=== PATIENT | male | born 1990 | race Caucasian/White ===

== ENCOUNTER 2017-12-02 14:41 | Emergency (ER) | payer SELFPAY ==
[2017-12-02 14:49] VITALS: BP 144/87; PULSE 138; RESP 16; TEMP 98.5; O2SAT 100
--- NOTE | 2017-12-02 15:07 | ED PDOC ---
Arrival/HPI - General Chief Complaint: Dental Pain Time Seen by Provider: 12/02/17 14:50 Historian: Patient - History of Present Illness Narrative History of Present Illness (Text): 12/02/17 15:02 26yo male with no PMHx who present with complaint of left sided upper molar toothache x 2days. States the tooth cracked a month ago and pain started fe days ago. States taking OTC analgesic without relieve. Denies fever, trauma, any other complaint. Past Medical History - Provider Review Nursing Documentation Reviewed: Yes - Psychiatric Hx Psychophysiologic Disorder: No Hx Substance Use: No Family/Social History - Physician Review Nursing Documentation Reviewed: Yes Family/Social History: Unknown Family HX Smoking Status: Never Smoked Hx Alcohol Use: No Hx Substance Use: No Allergies/Home Meds Allergies/Adverse Reactions: Allergies strawberry Allergy (Verified 12/02/17 14:44) RASH Review of Systems - Physician Review All systems were reviewed & negative as marked: Yes - Review of Systems Constitutional: Normal Eyes: Normal ENT: Other (Toothache) Respiratory: Normal Cardiovascular: Normal Gastrointestinal: Normal Genitourinary Male: Normal Musculoskeletal: Normal Skin: Normal Neurological: Normal Endocrine: Normal Hemo/Lymphatic: Normal Psychiatric: Normal Physical Exam Vital Signs Reviewed: Yes Vital Signs Temp Pulse Resp BP Pulse Ox 12/02/17 14:47 98.5 F 138 H 16 144/87 100 Temperature: Afebrile Blood Pressure: Normal Pulse: Regular Respiratory Rate: Normal Appearance: Positive for: Well-Appearing, Non-Toxic, Comfortable Pain Distress: None Mental Status: Positive for: Alert and Oriented X 3 - Systems Exam Head: Present: Atraumatic, Normocephalic Pupils: Present: PERRL Extroacular Muscles: Present: EOMI Conjunctiva: Present: Normal Mouth: Present: Moist Mucous Membranes. No: Normal Teeth (partial cracked left upper 1st molar noted with mild surrounding gingival swelling) Neck: Present: Normal Range of Motion Respiratory/Chest: Present: Clear to Auscultation, Good Air Exchange. No: Respiratory Distress, Accessory Muscle Use Cardiovascular: Present: Regular Rate and Rhythm, Normal S1, S2. No: Murmurs Abdomen: Present: Normal Bowel Sounds. No: Tenderness, Distention, Peritoneal Signs Back: Present: Normal Inspection Upper Extremity: Present: Normal Inspection. No: Cyanosis, Edema Lower Extremity: Present: Normal Inspection. No: Edema Neurological: Present: GCS=15, CN II-XII Intact, Speech Normal Skin: Present: Warm, Dry, Normal Color. No: Rashes Psychiatric: Present: Alert, Oriented x 3, Normal Insight, Normal Concentration Disposition/Present on Arrival - Present on Arrival Any Indicators Present on Arrival: No History of DVT/PE: No History of Uncontrolled Diabetes: No Urinary Catheter: No History of Decub. Ulcer: No History Surgical Site Infection Following: None - Disposition Have Diagnosis and Disposition been Completed?: Yes Diagnosis: Dental caries Disposition: HOME/ ROUTINE Disposition Time: 15:10 Patient Plan: Discharge Condition: STABLE Discharge Instructions (ExitCare): Dental Caries (ED) Additional Instructions: Follow up with a Dentist Return to ED for any new or worsening symptoms Prescriptions: Amoxicillin 500 mg PO TID #21 tablet traMADol [Ultram] 50 mg PO TID #7 tab Referrals: [facility] [place] - Follow up with primary
== END 2017-12-02 15:28 | disposition home or self-care (01) ==
LOC: ED 14:41
DX: K02.9 Dental caries, unspecified (principal)

== ENCOUNTER 2018-05-23 15:04 | Inpatient (IN) | payer MEDICAID, OTHER ==
--- NOTE | 2018-05-23 15:16 | ED PDOC ---
Arrival/HPI - General Time Seen by Provider: 05/23/18 15:16 Historian: Patient - History of Present Illness Narrative History of Present Illness (Text): 05/23/18 15:16 This 27 yo male with pmh GERD, gastritis, presents to this ED c/o suicidal ideation x 2 months. Patient stated he developed abdominal, acid reflux problems x 2 moths ago, and he started to have SI. Patient was able to see his clinic doctor 2 months ago, who prescribed him medication for GERD. He said this medication has worsen his SI. Patient stated that he used to watch TV alone in the house, but now he tries to "hang out" with his father more often , since he is afraid to be alone, and afraid to hurt himself. He admits symptoms are intermittent. Patient denies other somatic complains. Patient denies HI, hallucination, paranoia, dizziness, sob, cp, abdominal pain, alcohol abuse, drug abuse, or abnormal gait. Time/Duration: Other (see hpi) Context: Home Past Medical History - Provider Review Nursing Documentation Reviewed: Yes - Infectious Disease Hx of Infectious Diseases: None - Gastrointestinal Hx Gastrointestinal Disorders: Yes Hx Gastroesophageal Reflux: Yes - Psychiatric Hx Substance Use: No - Anesthesia Hx Anesthesia: No Family/Social History - Physician Review Nursing Documentation Reviewed: Yes Family/Social History: Other (noncontributory) Smoking Status: Never Smoked Hx Alcohol Use: No Hx Substance Use: No Allergies/Home Meds Allergies/Adverse Reactions: Allergies strawberry Allergy (Verified 04/25/18 13:26) RASH Review of Systems - Review of Systems Constitutional: Normal. absent: Fatigue, Weight Change, Fevers, Night Sweats Eyes: Normal ENT: Normal Respiratory: Normal. absent: SOB, Cough Cardiovascular: Normal. absent: Chest Pain, Palpitations Gastrointestinal: Normal. absent: Abdominal Pain, Nausea, Vomiting Genitourinary Male: Normal Musculoskeletal: Normal Skin: Normal Neurological: Normal. absent: Headache, Dizziness Endocrine: Normal Hemo/Lymphatic: Normal Psychiatric: Suicidal Ideation Physical Exam Vital Signs Temp Pulse Resp BP Pulse Ox 05/23/18 15:04 98.2 F 68 18 122/70 98 Temperature: Afebrile Blood Pressure: Normal Pulse: Regular Respiratory Rate: Normal Appearance: Positive for: Well-Appearing, Non-Toxic, Comfortable Pain Distress: None Mental Status: Positive for: Alert and Oriented X 3 - Systems Exam Head: Present: Atraumatic, Normocephalic Pupils: Present: PERRL Extroacular Muscles: Present: EOMI Conjunctiva: Present: Normal Mouth: Present: Moist Mucous Membranes Neck: Present: Normal Range of Motion Respiratory/Chest: Present: Clear to Auscultation, Good Air Exchange. No: Respiratory Distress, Accessory Muscle Use Cardiovascular: Present: Regular Rate and Rhythm, Normal S1, S2. No: Murmurs Abdomen: No: Tenderness, Distention, Peritoneal Signs Back: Present: Normal Inspection Upper Extremity: Present: Normal Inspection. No: Cyanosis, Edema Lower Extremity: Present: Normal Inspection. No: Edema Neurological: Present: GCS=15, CN II-XII Intact, Speech Normal Skin: Present: Warm, Dry, Normal Color. No: Rashes Psychiatric: Present: Alert, Oriented x 3, Suicidal Ideation Medical Decision Making ED Course and Treatment: 05/23/18 20:00 PES screener stated that patient agreed to be admitted in the psychiatric department. Re-evaluation Time: 20:46 Reassessment Condition: Re-examined, Improving,but remains with symptoms - Lab Interpretations Lab Results: 05/23/18 15:30 05/23/18 15:30 Lab Results 05/23/18 15:30: Alcohol, Quantitative < 10 05/23/18 15:30: Salicylates < 1 L, Acetaminophen < 10.0 L 05/23/18 15:30: Urine Opiates Screen Negative, Urine Methadone Screen Negative, Ur Barbiturates Screen Negative, Ur Phencyclidine Scrn Negative, Ur Amphetamines Screen Negative, U Benzodiazepines Scrn Negative, U Oth Cocaine Metabols Negative, U Cannabinoids Screen Negative 05/23/18 15:30: Sodium 142, Potassium 3.6, Chloride 101, Carbon Dioxide 28, Anion Gap 17, BUN 11, Creatinine 0.8, Est GFR ( Amer) > 60, Est GFR (Non- Af Amer) > 60, Random Glucose 106, Calcium 9.8, Magnesium 2.2, Total Bilirubin 0.7, AST 26, ALT 31, Alkaline Phosphatase 67, Total Protein 8.7 H, Albumin 5.2 H , Globulin 3.5, Albumin/Globulin Ratio 1.5 05/23/18 15:30: Urine Color Colorless, Urine Appearance Clear, Urine pH 6.5, Ur Specific [place] <= 1.005, Urine Protein Negative, Urine Glucose (UA) Negative, Urine Ketones Negative, Urine Blood Negative, Urine Nitrate Negative, Urine Bilirubin Negative, Urine Urobilinogen 0.2, Ur Leukocyte Esterase Negative 05/23/18 15:30: WBC 5.5, RBC 5.75, Hgb 16.5, Hct 46.0, MCV 80.0, MCH 28.7, MCHC 35.9, RDW 12.6, Plt Count 236, MPV 10.4, Gran % 51.3, Lymph % (Auto) 36.9 H, [place] % (Auto) 9.8 H, Eos % (Auto) 1.6, Baso % (Auto) 0.4, Gran # 2.84, Lymph # ( Auto) 2.0, [place] # (Auto) 0.5, Eos # (Auto) 0.1, Baso # (Auto) 0.02 I have reviewed the lab results: Yes Interpretation: No clinic. lab abnormalty - RAD Interpretation Radiology Orders: 05/23/18 15:38 CHEST PORTABLE [RAD] Stat Disposition/Present on Arrival - Present on Arrival Any Indicators Present on Arrival: No History of DVT/PE: No History of Uncontrolled Diabetes: No Urinary Catheter: No History Surgical Site Infection Following: None - Disposition Have Diagnosis and Disposition been Completed?: Yes Diagnosis: Major depressive disorder Disposition: HOSPITALIZED Disposition Time: 20:48 Patient Plan: Admission Condition: STABLE Referrals: PCP,NO [Primary Care Provider] - Follow up with primary
[2018-05-23 15:38] VITALS: BMI 23.1
[2018-05-23 15:54] LABS: BASO # 0.02 K/mm3 (0.0-2.0); BASO % 0.4 % (0.0-3.0); EOS # 0.1 (0.0-0.7); EOS % 1.6 % (1.5-5.0); GRAN # 2.84 (1.4-6.5); GRAN % 51.3 % (50.0-68.0); HEMOGLOBIN 16.5 g/dL (14.0-18.0); LYMPH % 36.9 % (22.0-35.0); MEAN CORPUSCULAR HEMOGLOBIN 28.7 pg (25.0-35.0); MEAN CORPUSCULAR HGB CONC 35.9 g/dl (31.0-37.0); MEAN PLATELET VOLUME 10.4 fl (7.0-11.0); MONO # 0.5 (0.1-0.6); MONO % 9.8 % (1.0-6.0); RBC 5.75 10^6/uL (3.5-6.1); RED CELL DISTRIBUTION WIDTH 12.6 % (11.5-14.5); WHITE BLOOD COUNT 5.5 10^3/ul (4.5-11.0)
--- NOTE | 2018-05-23 16:00 | RAD ---
Date of service: 05/23/2018 HISTORY: PES eval COMPARISON: No prior. FINDINGS: LUNGS: No active pulmonary disease. PLEURA: No significant pleural effusion identified, no pneumothorax apparent. CARDIOVASCULAR: Normal. OSSEOUS STRUCTURES: No significant abnormalities. VISUALIZED UPPER ABDOMEN: Normal. OTHER FINDINGS: None. IMPRESSION: No active disease.
[2018-05-23 16:05] LABS: ACETAMINOPHEN < 10.0 ug/ml (10.0-20.0); PH,URINE 6.5 (4.7-8.0); SALICYLATE < 1 mg/dL (2.0-20.0); URINE BILIRUBIN NEGATIVE (NEGATIVE); URINE BLOOD NEGATIVE (NEGATIVE); URINE GLUCOSE (UA) NEGATIVE (NEGATIVE); URINE LEUKOCYTE ESTERASE NEGATIVE Leu/uL (NEGATIVE); URINE PROTEIN NEGATIVE mg/dL (<30 mg/dL); URINE UROBILINOGEN 0.2 E.U./dL (<1 E.U./dL)
[2018-05-23 16:06] LABS: ALB/GLOB RATIO 1.5 (1.1-1.8); ALBUMIN 5.2 g/dL (3.0-4.8); ALT/SGPT 31 U/L (7-56); AST/SGOT 26 U/L (17-59); BLOOD UREA NITROGEN 11 mg/dL (7-21); CALCIUM 9.8 mg/dL (8.4-10.5); GFR AFRICAN-AMERICAN > 60; GFR NON-AFRICAN AMERICAN > 60; URINE APPEARANCE CLEAR (CLEAR); URINE COLOR COLORLESS (YELLOW)
[2018-05-23 16:28] LABS: BARBITURATES, UR NEGATIVE (NEGATIVE); BENZODIAZEPINES, UR NEGATIVE (NEGATIVE); OPIATES, UR NEGATIVE (NEGATIVE); PHENCYCLIDINE, UR NEGATIVE (NEGATIVE)
--- NOTE | 2018-05-23 19:30 | CARD ---
APPROVED REPORT Date of service: 05/23/2018 EKG Measurement Heart [id number] <Conclusion> Normal sinus rhythm with sinus arrhythmia Normal ECG
[2018-05-23 22:21] VITALS: O2SAT 99
[2018-05-23] MEDS ORDERED: Pantoprazole 40 mg EC Tab PO ONE (22:59)
--- NOTE | 2018-05-24 04:04 | PCM.BM ---
<María Braden - Last Filed: 05/24/18 04:02> Treatment Plan Problems - Problems identified on initial assessmt Ineffective Coping Date Initiated: 05/24/18 Time Initiated: 04:02 Assessment reference: NA Status: Active Social Isolation Date Initiated: 05/24/18 Time Initiated: 04:03 Assessment reference: NA Status: Active Altered Sleep Patterns Date Initiated: 05/24/18 Time Initiated: 04:03 Assessment reference: NA Status: Active Treatment assets and liabiliti Patient Assests: adapts well, cooperative, educated, insightful, self-reliant, ADL independent, good support system, negotiates basic needs, cognitively intact , good interpersonal skills Patient Liabilities: medical problems - Milieu Protocol Maintain good personal hygiene: daily Encourage regular showers, daily Remind patient to perform daily oral care, daily Assist patient to perform ADL's Conduct patient checks and document Observation sheet: Q15 minutes Maintain personal safety: every shift Educate patient to report safety concerns to staff, every shift Monitor environment for contraband/sharps Medication safety: Monitor for expected outcome, potential side effects: every shift, Assess barriers to learning: every shift, Assess readiness for medication education: every shift Discharge/Continuing Care - Education Needs Education Needs: Patient Medication, Patient Diagnosis/Disease Process, Patient Coping Skills, Patient Community resources, Patient Activities of Daily Living, Patient Pain, Patient Nutrition, Patient Health Practices/Safety, Patient Aftercare Safety Plan - Discharge Discharge Criteria: Tolerates medication w/o severe side effects, Free of Suicidal thoughts, Normal sleep pattern, Ability to care for self, Reduction of target symptoms <Mahnaz Mayen - Last Filed: 05/24/18 15:50> - Diagnosis (2) Major depressive disorder Status: Acute Interventions: 05/24/18 15:50 Psychoeducation Psychopharmacology/adjustment of medications as needed/ monitoring possible side effects Evaluate pt on daily basis Compliance with medications and follow up appointments Suicide and homicide risk assessment and prevention Relapse prevention Reduction of symptoms Improve functional status Family involvement As outpatient: cognitive behavioral therapy <Candie Portillo - Last Filed: 05/24/18 17:25> Family Contact Family involvement: Famliy/SO not involved <Anna Barnes - Last Filed: 05/27/18 15:44>
[2018-05-24 06:49] LABS: GLUCOSE,FASTING 100 mg/dL (65-110); HDL CHOLESTEROL 80 mg/dL (29-60)
[2018-05-24 07:00] LABS: LDL CHOLESTEROL 75 mg/dL (0-129)
[2018-05-24 07:03] VITALS: RESP 20
--- NOTE | 2018-05-24 09:10 | CP.PCM.CON ---
<Aguilar Garcia - Last Filed: 05/24/18 22:14> History of Present Illness - History of Present Illness History of Present Illness: Aguilar Garcia D.O. PGY-1 -- [facility] - Medicine Consult Note Reason for consult: GERD This is a 27 year old male with past medical history of GERD and depression who came in to [facility] ([facility] [place] emergency department (ED) for vomiting and gastric reflux. While in the ED patient stated he thought of hurting himself , and was admitted to [facility] [place] psychiatric unit for evaluation and treatment. Patient says he vomited yellowish "gastric" fluid, and says he often feels that after each meal he experiences nausea. Patient says that Reglan and pantoprazole makes it better, and that eating spicy foods makes it worse. Patient admits to depression and anxiety but otherwise denies suicidal thoughts. Patient denies homicidal thoughts. Patient denies chest pain, shortness of breath, abdominal pain, dizziness, and/or headache. PMH: GERD PSH: None Family history: Patient denies Social History: - denies tobacco - denies ETOH - denies recreational drugs - Lives at home with father Review of Systems - Review of Systems All systems: reviewed and no additional remarkable complaints except - Constitutional Constitutional: As Per HPI - EENT Eyes: As Per HPI Nose/Mouth/Throat: As Per HPI - Cardiovascular Cardiovascular: As Per HPI - Respiratory Respiratory: As Per HPI - Gastrointestinal Gastrointestinal: As Per HPI - Genitourinary Genitourinary: As Per HPI - Reproductive: Male Reproductive:Male: As Per HPI - Musculoskeletal Musculoskeletal: As Per HPI - Integumentary Integumentary: As Per HPI - Neurological Neurological: As Per HPI - Psychiatric Psychiatric: As Per HPI - Endocrine Endocrine: As Per HPI - Hematologic/Lymphatic Hematologic: As Per HPI Past Patient History - Infectious Disease Hx of Infectious Diseases: None - Past Medical History & Family History Past Medical History?: Yes Past Family History: Reviewed and not pertinent - Past Social History Smoking Status: Never Smoked Chewing Tobacco Use: No Cigar Use: No Alcohol: None Drugs: Denies Home Situation {Lives}: With Family Domestic Violence: Negative - CARDIAC Hx Cardiac Disorders: No - PULMONARY Hx Respiratory Disorders: No - NEUROLOGICAL Hx Neurological Disorder: No - HEENT Hx HEENT Problems: No - RENAL Hx Chronic Kidney Disease: No - ENDOCRINE/METABOLIC Hx Endocrine Disorders: No - HEMATOLOGICAL/ONCOLOGICAL Hx Blood Disorders: No - INTEGUMENTARY Hx Dermatological Problems: No - MUSCULOSKELETAL/RHEUMATOLOGICAL Hx Musculoskeletal Disorders: No - GASTROINTESTINAL Hx Gastrointestinal Disorders: Yes Hx Gastroesophageal Reflux: Yes - GENITOURINARY/GYNECOLOGICAL Hx Genitourinary Disorders: No - PSYCHIATRIC Hx Substance Use: No - SURGICAL HISTORY Hx Surgeries: No - ANESTHESIA Hx Anesthesia: No Meds Allergies/Adverse Reactions: Allergies Allergy/AdvReac Type Severity Reaction Status Date / Time strawberry Allergy RASH Verified 05/23/18 23:28 - Medications Medications: Current Medications Acetaminophen (Tylenol 325mg Tab) 650 mg PO Q6H PRN PRN Reason: Pain, Mild (1-3) Last Admin: 05/23/18 23:41 Dose: 650 mg Ondansetron HCl (Zofran Tab) 4 mg PO Q6 PRN PRN Reason: Nausea/Vomiting Last Admin: 05/24/18 04:59 Dose: 4 mg Physical Exam - Constitutional Appears: Well, Non-toxic, No Acute Distress - Head Exam Head Exam: ATRAUMATIC, NORMAL INSPECTION, NORMOCEPHALIC - Eye Exam Eye Exam: EOMI, Normal appearance. absent: Conjunctival injection, Scleral icterus Pupil Exam: NORMAL ACCOMODATION - ENT Exam ENT Exam: Mucous Membranes Moist, Normal Exam - Neck Exam Neck exam: Positive for: Normal Inspection - Respiratory Exam Respiratory Exam: Clear to Auscultation Bilateral, NORMAL BREATHING PATTERN - Cardiovascular Exam Cardiovascular Exam: REGULAR RHYTHM, RRR - GI/Abdominal Exam GI & Abdominal Exam: Normal Bowel Sounds, Soft. absent: Bruit, Diminished Bowel Sounds, Distended, Hyperactive Bowel Sounds, Organomegaly, Pulsatile Mass , Tenderness - Extremities Exam Extremities exam: Positive for: normal inspection - Back Exam Back exam: NORMAL INSPECTION - Neurological Exam Neurological exam: Alert, CN II-XII Intact, Normal Gait, Oriented x3, Reflexes Normal - Psychiatric Exam Psychiatric exam: Anxious, Normal Affect, Normal Mood - Skin Skin Exam: Dry, Intact, Normal Color, Warm Results - Vital Signs Recent Vital Signs: Last Vital Signs Temp 97.9 F 05/24/18 07:02 Pulse 54 L 05/24/18 07:02 Resp 20 05/24/18 07:02 BP 116/74 05/24/18 07:02 Pulse Ox 99 07/12/18 21:16 - Labs Result Diagrams: 05/23/18 15:30 05/23/18 15:30 Labs: Laboratory Results - last 24 hr 05/24/18 05/24/18 06:00 06:00 Fasting Glucose 100 Triglycerides 73 Cholesterol 189 LDL Cholesterol Direct 75 HDL Cholesterol 80 H TSH 3rd Generation 3.29 Assessment & Plan - Assessment and Plan (Free Text) Assessment: This is a 27 year old male with past medical history of GERD and depression who came in to [facility] ([facility] [place] emergency department (ED) for vomiting and gastric reflux. While in the ED patient stated he thought of hurting himself , and was admitted to [facility] [place] psychiatric unit for evaluation and treatment. Nausea and vomiting likely secondary to GERD - Discontinued zofran - Patient is started on home meds (Reglan and Esomeprazole) - Will monitor out-patient - Patient educated on avoiding spicy foods, drinking coffee, and eating right before bedtime - Patient scheduled for follow-up appointment for his GERD in clinic on 2017 at 1:00PM Suicidal Ideation likely secondary to depression, patient admitted to in- patient psych unit - management per psych Thank you for allowing me to participate in the care of the above named patient. Please consult again if necessary. Patient was evaluated and case was discussed with Attending Physician, Dr. Shante Garcia D.O. PGY1 - Date & Time Date: 05/24/18 Time: 12:21 <Thu Frey - Last Filed: 05/25/18 11:27> Meds - Medications Medications: Current Medications Acetaminophen (Tylenol 325mg Tab) 650 mg PO Q6H PRN PRN Reason: Pain, Mild (1-3) Last Admin: 05/23/18 23:41 Dose: 650 mg Mirtazapine (Remeron) 7.5 mg PO HS MAVERICK Last Admin: 05/24/18 21:55 Dose: 7.5 mg Ondansetron HCl (Zofran Tab) 4 mg PO Q8H PRN PRN Reason: Nausea/Vomiting Last Admin: 05/25/18 09:25 Dose: 4 mg Pantoprazole Sodium (Protonix Ec Tab) 40 mg PO DAILY MAVERICK Last Admin: 05/25/18 08:38 Dose: 40 mg Results - Vital Signs Recent Vital Signs: Last Vital Signs Temp 97.2 F L 05/25/18 06:44 Pulse 69 05/25/18 06:44 Resp 20 05/25/18 06:44 BP 111/77 05/25/18 06:44 Pulse Ox 99 05/23/18 21:16 - Labs Result Diagrams: 05/23/18 15:30 05/23/18 15:30 Labs: Laboratory Results - last 24 hr 05/24/18 06:00 RPR Nonreactive Attending/Attestation - Attestation I have personally seen and examined this patient.: Yes I have fully participated in the care of the patient.: Yes I have reviewed all pertinent clinical information: Yes Notes (Text): 05/25/18 11:22 Attending note Patient seen and examined with resident in psychiatric floor. Patient is a 27 year old male with past medical history of GERD and depression was admitted in the psychiatric floor for suicidal ideation. Patient with a history of GERD. Getting treated as outpatient with omeprazole. Currently denies any nausea, vomiting. Started on Protonix. Zofran when necessary. Tolerating diet well. Ambulating fine. Patient is medically stable. Please reconsult as needed. Patient will be referred to [facility] [place] clinic upon discharge. 05/25/18 11:27
[2018-05-24] MEDS: Pantoprazole 40 mg EC Tab PO SCH (13:34)
--- NOTE | 2018-05-24 14:07 | PCM.PSYCH ---
<Nora Pike - Last Filed: 05/24/18 15:34> Initial Psychiatric Evaluation - Initial Psychiatric Evaluation Type of Admission: Voluntary Legal Status: Capacity Chief Complaint (in patient's own words): I haven been having stomach issues for the past few months. I came fore a follow-up appointment today and said that I thought the medications were causing me to have bad thoughts. The thoughts are not there all the time. They come at night. I would never act on them though. I dont believe in that. Patient's Reaction to Hospitalization: The patient was admitted to the psych unit for evaluation after reporting thoughts of self-harm/suicide without a plan. History of Present Illness and Precipitating Events: Yoel Perez is a 27 yo Vietnamese male with no past psychiatric history who presented to the ED with his father after being referred by his outpatient provider for expressing thoughts of suicide. The patient reports experiencing GI upset/GERD for the past few months. He was diagnosed with gastritis and GERD and was started on Nexium and Zofran. He states his symptoms were improving, but he continues to have intermittent vomiting and body aches causing him to have poor sleep. He also reports intermittent thoughts about wanting to hurt/ kill himself. He is adamant that he has no intent of actually hurting himself. He believes that these thoughts may be due to his GI medications. He describes the thoughts as annoying and scary. He is unable to articulate exactly what the thoughts are. He repeatedly denies any plan or intent, stating I do not believe in that and would never actually do it. He had a follow-up appointment with the [facility] yesterday, and the provider referred him to the ED for evaluation. The patient is originally from [place] but has lived in the [place] full[place]time for the past 3 years. He is attempting to become a [place] citizen and actually had an appointment for fingerprinting scheduled for today. He lives with his father. Most of his family is outside the [place], but he reports that his mother comes to visit often from [place]. 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 Both the patient and his father deny any psychiatric history. The patient is seen in treatment team and presents as calm and cooperative. He is a good historian. He is dressed in a hospital gown with good grooming/ hygiene. His speech and thought process are linear, logical, and coherent. The patient states his mood is good, and adds that if he is not in a good mood, he tries to do things to make him feel better, like read and write. The patient states he has friends but does not see them as much as he used to because everyone is busy. He reports this causes him to feel lonely at times. The patient reports his appetite is good, despite his GI symptoms. His concentration and energy are good. He denies ever experiencing any symptoms of jocelyn, anxiety, or psychosis. He denies trauma and abuse. He denies substance use. Vital Signs Temp Pulse Resp BP Pulse Ox 05/24/18 07:02 97.9 F 54 L 20 116/74 05/23/18 21:16 82 17 120/61 99 05/23/18 20:52 98.8 F 88 20 118/78 98 05/23/18 15:04 98.2 F 68 18 122/70 98 05/23/18 15:30 05/23/18 15:30 Lab Results 05/24/18 06:00: Fasting Glucose 100, Triglycerides 73, Cholesterol 189, LDL Cholesterol Direct 75, HDL Cholesterol 80 H 05/24/18 06:00: TSH 3rd Generation 3.29 05/23/18 15:30: Alcohol, Quantitative < 10 05/23/18 15:30: Salicylates < 1 L, Acetaminophen < 10.0 L 05/23/18 15:30: Urine Opiates Screen Negative, Urine Methadone Screen Negative, Ur Barbiturates Screen Negative, Ur Phencyclidine Scrn Negative, Ur Amphetamines Screen Negative, U Benzodiazepines Scrn Negative, U Oth Cocaine Metabols Negative, U Cannabinoids Screen Negative 05/23/18 15:30: Sodium 142, Potassium 3.6, Chloride 101, Carbon Dioxide 28, Anion Gap 17, BUN 11, Creatinine 0.8, Est GFR ( Amer) > 60, Est GFR (Non- Af Amer) > 60, Random Glucose 106, Calcium 9.8, Magnesium 2.2, Total Bilirubin 0.7, AST 26, ALT 31, Alkaline Phosphatase 67, Total Protein 8.7 H, Albumin 5.2 H , Globulin 3.5, Albumin/Globulin Ratio 1.5 05/23/18 15:30: Urine Color Colorless, Urine Appearance Clear, Urine pH 6.5, Ur Specific [place] <= 1.005, Urine Protein Negative, Urine Glucose (UA) Negative, Urine Ketones Negative, Urine Blood Negative, Urine Nitrate Negative, Urine Bilirubin Negative, Urine Urobilinogen 0.2, Ur Leukocyte Esterase Negative 05/23/18 15:30: WBC 5.5, RBC 5.75, Hgb 16.5, Hct 46.0, MCV 80.0, MCH 28.7, MCHC 35.9, RDW 12.6, Plt Count 236, MPV 10.4, Gran % 51.3, Lymph % (Auto) 36.9 H, [place] % (Auto) 9.8 H, Eos % (Auto) 1.6, Baso % (Auto) 0.4, Gran # 2.84, Lymph # ( Auto) 2.0, [place] # (Auto) 0.5, Eos # (Auto) 0.1, Baso # (Auto) 0.02 Current Medications: Nexium Zofran Active Medications Generic Name Dose Route Start Last Admin Trade Name Freq PRN Reason Stop Dose Admin Acetaminophen 650 mg 05/23/18 23:26 05/23/18 23:41 Tylenol 325mg Tab PO 650 mg Q6H PRN Administration Pain, Mild (1-3) Metoclopramide HCl 10 mg 05/24/18 11:18 Reglan PO TID PRN Nausea/Vomiting Mirtazapine 7.5 mg 05/24/18 22:00 Remeron PO HS MAVERICK Pantoprazole Sodium 40 mg 05/24/18 11:30 05/24/18 13:34 Protonix Ec Tab PO 40 mg DAILY MAVERICK Administration Past Psychiatric History - Past Psychiatric History Prior Professional Help: denies Prior Psychiatric Treatment: denies History of Abuse: denies History of ETOH/Drug Use: denies History of Family Illness: denies psych hx, SA maternal family- T2DM Pertinent Medical Hx (Current Medical&Sleep Prob, Allergies): gastritis, GERD Allergies Allergy/AdvReac Type Severity Reaction Status Date / Time strawberry Allergy RASH Verified 05/23/18 23:28 Esomeprazole Magnesium [Nexium] 40 mg PO DAILY #20 capsule. 04/24/18 Metoclopramide [Reglan] 1 tab PO TID PRN #15 tab 04/25/18 Review of Systems - EENT Eyes: As Per HPI Ears: As Per HPI Nose/Mouth/Throat: As Per HPI - Cardiovascular Cardiovascular: As Per HPI - Respiratory Respiratory: As Per HPI - Gastrointestinal Gastrointestinal: As Per HPI - Genitourinary Genitourinary: As Per HPI - Musculoskeletal Musculoskeletal: As Par HPI - Integumentary Integumentary: As Per HPI - Neurological Neurological: As Per HPI - Psychiatric Psychiatric: As Per HPI - Endocrine Endocrine: As Per HPI - Hematologic/Lymphatic Hematologic: As Per HPI Mental Status Examination - Personal Presentation Personal Presentation: Looks stated age - Affect Affect: Other (full) - Motor Activity Motor Activity: Calm - Reliability in Providing Information Reliability in Providing Information: Good - Speech Speech: Organized, Coherent - Mood Mood: Other (good) - Formal Thought Process Formal Thought Process: No Impairment - Obsessions/Compulsions Obsessions: No Compulsions: No - Cognitive Functions Orientation: Person, Place, Situation, Time Sensorium: Alert Attention/Concentration: Attentive Estimate of Intelligence: Above Average Judgement: Intact, as evidence by: Good judgement Memory: Recent intact, as evidence by: Ability to recall events of the day, Remote intact, as evidenced by: Abilit to recall sig. life events - Risk Risk: Other (intermittent suicidal thoughts without a plan or intent) - Strength & Assets Inventory Strength & Assets Inventory: Intelligence, Family support, Education, Employment status, Interests/hobbies, Cooperative, Other (no personal or known family history of mental illness) - Limitations Additional comments: limited interaction with friends, most of family outside of [facility] DSM 5 DX - DSM 5 DSM 5 Diagnosis: Adjustment disorder - r/o MDD - Recommended/Plan of Treatment Treatment Recommendations and Plan of Treatment: 1. Remeron 7.5 mg qhs for mood, sleep, and appetite 2. Medicine and GI consults - Reglan 10 mg tid - Protonix 40 mg daily - f/u appt at clinic 06/07 1:00 PM 3. Milieu and group therapy Patient was educated about risk/benefits and alternatives of medications, coping strategies (safety plan, suicide prevention), relapse prevention, importance of follow up with psychiatrist and therapist, stay away from drugs/ alcohol/smoking. Projected ELOS: 3 days Prognosis: excellent Discharge Plan and Discharge Criteria: Patient will be not depressed or manic, will be more hopeful, will be not psychotic or anxious, will be not having thoughts of harming self or others, will be tolerating medications well, will not have major side effects, will be able to function, will not pose threat to self or others. - Smoking Cessation Smoking Cessation Initiated: No Reason for not providing: Patient denies tobacco use. <Mahnaz Mayen Meliza - Last Filed: 05/24/18 15:54> Initial Psychiatric Evaluation - Initial Psychiatric Evaluation Type of Admission: Voluntary Legal Status: Capacity (Patient has capacity to sign consent for treatment) History of Present Illness and Precipitating Events: patient denied using drugs or denied smoking or denied drinking alcohol, acceptable personal hygiene, good ADLs Family history: Patient denied family history of mental illness Medical history: Patient has history of gastritis, dyspepsia Patient denied history of being abused During the evaluation patient presented to be guarded when was asked about his suicidal ideation, patient was not able to express what kind of suicidal ideations he has. agreed with buying intern assessment and plan. Current Medications: Active Medications Generic Name Dose Route Start Last Admin Trade Name Freq PRN Reason Stop Dose Admin Acetaminophen 650 mg 05/23/18 23:26 05/23/18 23:41 Tylenol 325mg Tab PO 650 mg Q6H PRN Administration Pain, Mild (1-3) Metoclopramide HCl 10 mg 05/24/18 11:18 05/24/18 15:11 Reglan PO 10 mg TID PRN Administration Nausea/Vomiting Mirtazapine 7.5 mg 05/24/18 22:00 Remeron PO HS MAVERICK Pantoprazole Sodium 40 mg 05/24/18 11:30 05/24/18 13:34 Protonix Ec Tab PO 40 mg DAILY MAVERICK Administration Past Psychiatric History - Past Psychiatric History Previous Treatment History: None At what hospital: denied Pertinent Medical Hx (Current Medical&Sleep Prob, Allergies): Allergies Allergy/AdvReac Type Severity Reaction Status Date / Time strawberry Allergy RASH Verified 05/23/18 23:28 Esomeprazole Magnesium [Nexium] 40 mg PO DAILY #20 capsule. 04/24/18 Metoclopramide [Reglan] 1 tab PO TID PRN #15 tab 04/25/18 Review of Systems - Review of Systems Systems not reviewed;Unavailable: Acuity of Condition DSM 5 DX - DSM 5 DSM 5 Diagnosis: rule out mood disorder due to general medical condition - Smoking Cessation Smoking Cessation Initiated: No
[2018-05-24] MEDS ORDERED: Pantoprazole 40 mg EC Tab PO ONE (22:47)
[2018-05-25] MEDS: Pantoprazole 40 mg EC Tab PO SCH (08:38)
--- NOTE | 2018-05-25 09:54 | PCM.PYCHPN ---
Psychiatric Progress Note - Psychiatric Progress Note Patient seen today, length of contact: 25 min Problems Identified/Issues Discussed: I reviewed assessment and recent notes. Patient continues to remain in good behavioral control. He is oriented x3 and appears groomed around the unit. Affect is constricted however demonstrates some reactivity as well as anxiousness. He is a little oddly related and thought process is mildly scattered. However he is not hallucinating or overtly paranoid. He denies wishes are suicidal thoughts. Feels more hopeful than hopeless. Tolerating remeron which was started last night. He reports this medication worked really well and that he slept "deeply". We have a brief discussion about this medicaitons indications and the concept of therapeutic latency. Patient continues to have reflux symptoms, doesn't appear in distress during my visit. I agree with staff, he is a little preoccupied with his GI medications however he can be redirected. Diagnostic Results: Adjustment disorder - r/o MDD - r/o Mood Disorder secondary to [facility] [place] Medication Change: No Medical Record Reviewed: Yes Mental Status Examination - Cognitive Function Orientation: Person, Place, Situation, Time Attention: Poor Concentration: Poor - Mood Mood: Depressed, Anxious, Other (good) - Affect Affect: Constricted, Other ( constricted however demonstrates some reactivity as well as anxiousness) - Speech Speech: Appropriate - Formal Thought Process Formal Thought Process: No Impairment (mildly scattered) - Suicidal Ideation Suicidal Ideation: No - Homicidal Ideation Homicidal Ideation: No Goal/Treatment Plan - Goal/Treatment Plan Progress Toward Problem(s) and Goals/Treatment Plan: * c/w current tx and plan * No new weekend lab results thus far * Vitals reviewed and noted below: Selected Entries 05/25/18 06:44 Temperature 97.2 F L Pulse Rate 69 Respiratory 20 Rate Blood Pressure 111/77
--- NOTE | 2018-05-25 15:06 | CON ---
DATE: 05/25/2018 GASTROENTEROLOGY CONSULTATION REQUESTING PHYSICIAN: Dr. Pina. HISTORY OF PRESENT ILLNESS: I have been asked to see this 27-year-old male with history of gastroesophageal reflux disease, gastritis, depression and comes to the hospital with intermittent vomiting and acid reflux. The patient was admitted to the Psychiatric Unit for depression and suicidal thoughts. The patient has not had any vomiting for several days. The patient states that he had an endoscopy several weeks ago for intractable vomiting and reflux. The patient states that his symptoms have improved with PPI and Zofran. PAST MEDICAL HISTORY: Notable for GERD and intermittent vomiting. SOCIAL HISTORY: Denies cigarette smoking or alcohol use. FAMILY HISTORY: Noncontributory. PHYSICAL EXAMINATION: GENERAL: Well-developed male lying in bed, in no acute distress. VITAL SIGNS: Reveal temperature of 97.2, blood pressure 111/77, heart rate of 69. HEENT: Reveals sclerae to be white. Conjunctivae pink. Oral mucosa is moist. NECK: Supple. CHEST: Lungs are clear. HEART: Regular rate and rhythm. ABDOMEN: Soft, nontender. EXTREMITIES: Show no edema. LABORATORY DATA: Reveal white blood cell count of 5.5, hemoglobin 16.5. Chemistries reveal normal electrolytes. Toxicology screen is negative. IMPRESSION: A 27-year-old male with chronic gastroesophageal reflux disease and intermittent vomiting. He is admitted to the Psychiatric Unit for depression and suicidal thoughts. His reflux symptoms has improved. RECOMMENDATIONS: 1. Continue PPI. 2. No plans for endoscopy as the patient states he did have an endoscopy several weeks ago. Delta Ocampo MD
[2018-05-26] MEDS: Pantoprazole 40 mg EC Tab PO SCH (08:37)
--- NOTE | 2018-05-26 09:44 | PCM.PYCHPN ---
Psychiatric Progress Note - Psychiatric Progress Note Patient seen today, length of contact: 25 min Patient Chief Complaint: "a lot better" Problems Identified/Issues Discussed: I reviewed recent notes. Patient continues to remain in good behavioral control. He is oriented x3 and appears groomed around the unit. Affect is constricted however demonstrates some reactivity as well as anxiousness. He remains oddly related and thought process can be circumstantial. He has difficulty responding to questions in a goal directed manner and still needs redirection in this regard. Patient has been somatic on the unit and frequently refers to his diagnosis of GERD. Apparently he vomited up a plum due to nausea (patient kindly shared his fruit with other patients prior to this incident) and had a dose of zofran. Patient is not hallucinating or overtly paranoid. He denies wishes or suicidal thoughts. Feels more hopeful than hopeless and reports that he is feeling a lot better since admission. Tolerating remeron which was started Sunday night but appeared reluctant to take it last night. He reports this medication worked really well again last night to help with sleep. Patient denies any reflux symptoms this morning and doesn't appear in distress during my visit. Diagnostic Results: Adjustment disorder - r/o MDD - r/o Mood Disorder [place] [facility] [place] Medication Change: No Medical Record Reviewed: Yes Mental Status Examination - Cognitive Function Orientation: Person, Place, Situation, Time Attention: Poor Concentration: Poor - Mood Mood: Depressed, Anxious, Other (good) - Affect Affect: Constricted, Other ( constricted however demonstrates some reactivity as well as anxiousness) - Speech Speech: Appropriate - Formal Thought Process Formal Thought Process: Circumstantial - Suicidal Ideation Suicidal Ideation: No - Homicidal Ideation Homicidal Ideation: No Goal/Treatment Plan - Goal/Treatment Plan Progress Toward Problem(s) and Goals/Treatment Plan: * c/w current tx and plan * Appreciate f/u by Dr. Ocampo on 05/25/18~c/w PPI. Endoscopy not recommended, patient just had one a few weeks ago. * No new weekend lab results thus far * Vitals reviewed and noted below: Selected Entries 05/25/18 05/25/18 06:44 16:45 Temperature 97.2 F L Pulse Rate 69 63 Respiratory 20 Rate Blood Pressure 111/77 102/69
[2018-05-27] MEDS: Pantoprazole 40 mg EC Tab PO SCH (07:00)
[2018-05-27 07:37] VITALS: BP 121/76; PULSE 61; TEMP 98
--- NOTE | 2018-05-27 15:39 | PCM.PYCHDC ---
Mental Status Examination - Mental Status Examination Orientation: Person, Place, Situation, Time Memory: Intact Mood: Neutral Affect: Broad (And mood congruent) Speech: Appropriate Attention: WNL Concentration: WNL Association: WNL Fund of Knowledge: WNL Formal Thought Process: No Impairment Description of patient's judgement and insight: Pt has improved insight into mental and medical illness, pt was compliant with medications and unit rules and regulations, pt was going to groups, was calm, cooperative, socially appropriate, no behavioral incidents, no agitation, no aggression. Psychotic Thoughts and Behaviors: Pt denied v/a/t hallucinations, denied paranoid ideations, pt does not appear to be psychotic, and thought process is goal directed. Suicidal Ideation: No Current Homicidal Ideation?: No Plan: pt adamantly denied thoughts of harming self or others denied intent or plan. Discharge Summary - Discharge Note Reason for Hospitalization: patient was admitted to psychiatric inpatient unit for evaluation of possible depressive symptoms and questionable suicidal ideation with no plan or intent to kill himself Psychiatric History (includes Medical, Family, Personal Hx): denied Laboratory Data: 05/23/18 15:30 05/23/18 15:30 Lab Results 05/24/18 06:00: Fasting Glucose 100, Triglycerides 73, Cholesterol 189, LDL Cholesterol Direct 75, HDL Cholesterol 80 H 05/24/18 06:00: RPR Nonreactive 05/24/18 06:00: TSH 3rd Generation 3.29 05/23/18 15:30: Alcohol, Quantitative < 10 05/23/18 15:30: Salicylates < 1 L, Acetaminophen < 10.0 L 05/23/18 15:30: Urine Opiates Screen Negative, Urine Methadone Screen Negative, Ur Barbiturates Screen Negative, Ur Phencyclidine Scrn Negative, Ur Amphetamines Screen Negative, U Benzodiazepines Scrn Negative, U Oth Cocaine Metabols Negative, U Cannabinoids Screen Negative 05/23/18 15:30: Sodium 142, Potassium 3.6, Chloride 101, Carbon Dioxide 28, Anion Gap 17, BUN 11, Creatinine 0.8, Est GFR ( Amer) > 60, Est GFR (Non- Af Amer) > 60, Random Glucose 106, Calcium 9.8, Magnesium 2.2, Total Bilirubin 0.7, AST 26, ALT 31, Alkaline Phosphatase 67, Total Protein 8.7 H, Albumin 5.2 H , Globulin 3.5, Albumin/Globulin Ratio 1.5 05/23/18 15:30: Urine Color Colorless, Urine Appearance Clear, Urine pH 6.5, Ur Specific [place] <= 1.005, Urine Protein Negative, Urine Glucose (UA) Negative, Urine Ketones Negative, Urine Blood Negative, Urine Nitrate Negative, Urine Bilirubin Negative, Urine Urobilinogen 0.2, Ur Leukocyte Esterase Negative 05/23/18 15:30: WBC 5.5, RBC 5.75, Hgb 16.5, Hct 46.0, MCV 80.0, MCH 28.7, MCHC 35.9, RDW 12.6, Plt Count 236, MPV 10.4, Gran % 51.3, Lymph % (Auto) 36.9 H, [place] % (Auto) 9.8 H, Eos % (Auto) 1.6, Baso % (Auto) 0.4, Gran # 2.84, Lymph # ( Auto) 2.0, [place] # (Auto) 0.5, Eos # (Auto) 0.1, Baso # (Auto) 0.02 Vital Signs Temp Pulse Resp BP Pulse Ox 05/27/18 07:36 98.0 F 61 20 121/76 05/26/18 16:07 83 116/82 05/26/18 07:44 97.2 F L 56 L 20 96/64 L 05/25/18 16:45 63 102/69 05/25/18 06:44 97.2 F L 69 20 111/77 05/24/18 16:00 69 103/61 05/24/18 07:02 97.9 F 54 L 20 116/74 05/23/18 21:16 82 17 120/61 99 05/23/18 20:52 98.8 F 88 20 118/78 98 05/23/18 15:04 98.2 F 68 18 122/70 98 Consultations:: List each consultation separately and include: 1. Reason for request. 2. Findings. 3. Follow-up Consultations: atient was seen by fish machine feeder and internal medicine team see notes for more detailed information Summary of Hospital Course include:: 1. Description of specific treatment plan utilized for patients during their course of treatmen. 2. Summarize the time- course for resolution of acute symptoms and/or regressed behaviors. 3. Describe issues identified and worked on during hospitalization. 4. Describe medication utilized. 5. Describe medical problems identified and treated. 6. Reassessment of suicide risk Summary of Hospital Course: Yoel Perez is a 27 yo [place] male with no past psychiatric history who presented to the ED with his father after being referred by his outpatient provider for expressing thoughts of suicide. The patient reports experiencing GI upset/GERD for the past few months. He was diagnosed with gastritis and GERD and was started on Nexium and Zofran. He states his symptoms were improving, but he continues to have intermittent vomiting and body aches causing him to have poor sleep. He also reports intermittent thoughts about wanting to hurt/ kill himself. He is adamant that he has no intent of actually hurting himself. He believes that these thoughts may be due to his GI medications. He describes the thoughts as annoying and scary. He is unable to articulate exactly what the thoughts are. He repeatedly denies any plan or intent, stating I do not believe in that and would never actually do it. He had a follow-up appointment with the [facility] and the provider referred him to the ED for evaluation. at the time of initial evaluation patient reported that his depressive symptoms and insomnia related to the medical issues what he had, patient reported that he is GERD as well as dyspepsia wakes him up at nighttime and patient had ransient suicidal ideation but denied any intent or plan to kill himself. Patient reported that he is going to college, works as a part-time as a cabdriver, patient reported that he has future oriented plans. Patient reported that he feels anxious about his medical condition, but denied feeling of hopelessness or helplessness. patient denied using drugs or denied smoking or denied drinking alcohol, acceptable personal hygiene, good ADLs Family history: Patient denied family history of mental illness Medical history: Patient has history of gastritis, dyspepsia Patient denied history of being abused During the evaluation patient presented to be guarded when was asked about his suicidal ideation, patient was not able to express what kind of suicidal ideations he has. agreed with marketing summer intern assessment and plan. patient was observed in psychiatric inpatient unit for 72 hours, patient was compliant with the medications, was attending groups, was polite, corporative, no behavioral incidents, patient was not psychotic. Patient was prescribed Remeron 7.5 mg at the nighttime for insomnia as well as for depressive symptoms. Patient was compliant with the medication, patient reported that depression is better, patient reported that his sleep improved significantly. Patient was seen by medical team as well as fish machine feeder well being in the psychiatric inpatient unit please see notes for more detailed information. 05/24/18 05/24/18 05/24/18 06:00 06:00 06:00 WBC RBC Hgb Hct MCV MCH MCHC RDW Plt Count MPV Gran % Lymph % (Auto) [place] % (Auto) Eos % (Auto) Baso % (Auto) Gran # Lymph # (Auto) [place] # (Auto) Eos # (Auto) Baso # (Auto) Sodium Potassium Chloride Carbon Dioxide Anion Gap BUN Creatinine Est GFR ( Amer) Est GFR (Non-Af Amer) Random Glucose Fasting Glucose 100 Calcium Magnesium Total Bilirubin AST ALT Alkaline Phosphatase Total Protein Albumin Globulin Albumin/Globulin Ratio Triglycerides 73 Cholesterol 189 LDL Cholesterol Direct 75 HDL Cholesterol 80 H TSH 3rd Generation 3.29 Urine Color Urine Appearance Urine pH Ur Specific [place] Urine Protein Urine Glucose (UA) Urine Ketones Urine Blood Urine Nitrate Urine Bilirubin Urine Urobilinogen Ur Leukocyte Esterase Salicylates Urine Opiates Screen Urine Methadone Screen Acetaminophen Ur Barbiturates Screen Ur Phencyclidine Scrn Ur Amphetamines Screen U Benzodiazepines Scrn U Oth Cocaine Metabols U Cannabinoids Screen Alcohol, Quantitative RPR Nonreactive 05/23/18 05/23/18 05/23/18 15:30 15:30 15:30 WBC RBC Hgb Hct MCV MCH MCHC RDW Plt Count MPV Gran % Lymph % (Auto) [place] % (Auto) Eos % (Auto) Baso % (Auto) Gran # Lymph # (Auto) [place] # (Auto) Eos # (Auto) Baso # (Auto) Sodium Potassium Chloride Carbon Dioxide Anion Gap BUN Creatinine Est GFR ( Amer) Est GFR (Non-Af Amer) Random Glucose Fasting Glucose Calcium Magnesium Total Bilirubin AST ALT Alkaline Phosphatase Total Protein Albumin Globulin Albumin/Globulin Ratio Triglycerides Cholesterol LDL Cholesterol Direct HDL Cholesterol TSH 3rd Generation Urine Color Urine Appearance Urine pH Ur Specific [place] Urine Protein Urine Glucose (UA) Urine Ketones Urine Blood Urine Nitrate Urine Bilirubin Urine Urobilinogen Ur Leukocyte Esterase Salicylates < 1 L Urine Opiates Screen Negative Urine Methadone Screen Negative Acetaminophen < 10.0 L Ur Barbiturates Screen Negative Ur Phencyclidine Scrn Negative Ur Amphetamines Screen Negative U Benzodiazepines Scrn Negative U Oth Cocaine Metabols Negative U Cannabinoids Screen Negative Alcohol, Quantitative < 10 RPR 05/23/18 05/23/18 05/23/18 15:30 15:30 15:30 WBC 5.5 RBC 5.75 Hgb 16.5 Hct 46.0 MCV 80.0 MCH 28.7 MCHC 35.9 RDW 12.6 Plt Count 236 MPV 10.4 Gran % 51.3 Lymph % (Auto) 36.9 H [place] % (Auto) 9.8 H Eos % (Auto) 1.6 Baso % (Auto) 0.4 Gran # 2.84 Lymph # (Auto) 2.0 [place] # (Auto) 0.5 Eos # (Auto) 0.1 Baso # (Auto) 0.02 Sodium 142 Potassium 3.6 Chloride 101 Carbon Dioxide 28 Anion Gap 17 BUN 11 Creatinine 0.8 Est GFR ( Amer) > 60 Est GFR (Non-Af Amer) > 60 Random Glucose 106 Fasting Glucose Calcium 9.8 Magnesium 2.2 Total Bilirubin 0.7 AST 26 ALT 31 Alkaline Phosphatase 67 Total Protein 8.7 H Albumin 5.2 H Globulin 3.5 Albumin/Globulin Ratio 1.5 Triglycerides Cholesterol LDL Cholesterol Direct HDL Cholesterol TSH 3rd Generation Urine Color Colorless Urine Appearance Clear Urine pH 6.5 Ur Specific [place] <= 1.005 Urine Protein Negative Urine Glucose (UA) Negative Urine Ketones Negative Urine Blood Negative Urine Nitrate Negative Urine Bilirubin Negative Urine Urobilinogen 0.2 Ur Leukocyte Esterase Negative Salicylates Urine Opiates Screen Urine Methadone Screen Acetaminophen Ur Barbiturates Screen Ur Phencyclidine Scrn Ur Amphetamines Screen U Benzodiazepines Scrn U Oth Cocaine Metabols U Cannabinoids Screen Alcohol, Quantitative RPR Vital Signs Temp Pulse Resp BP Pulse Ox 05/27/18 07:36 98.0 F 61 20 121/76 05/26/18 16:07 83 116/82 05/26/18 07:44 97.2 F L 56 L 20 96/64 L 05/25/18 16:45 63 102/69 05/25/18 06:44 97.2 F L 69 20 111/77 05/24/18 16:00 69 103/61 05/24/18 07:02 97.9 F 54 L 20 116/74 05/23/18 21:16 82 17 120/61 99 05/23/18 20:52 98.8 F 88 20 118/78 98 05/23/18 15:04 98.2 F 68 18 122/70 98 Over the course of this hospitalization pt was attending groups, pt also had medication management, had therapeutic milieu. Overall pt improved significantly, pt's affect became brighter, pt was less depressed, has realistic future oriented plans, pt also does not appear to be psychotic, or anxious, pt was socially appropriate, no behavioral issues, pts insight improved as well and soon pt deemed to be ready for discharge. At the time of the discharge pt denied been depressed, denied thoughts of harming self or others, denied psychotic symptoms, and pt does not appeared to be psychotic, denied been anxious, pt is not in imminent danger to self or others, will be following up at [facility] time and address provided to the pt, it is patient responsibility to follow up with outpatient clinic, PMD as well as specialists (see SW note for more detailed information). In case pt will need to obtain results of studies pending at discharge pt was provided with contact information of Psychiatric Inpatient unit [phone] as well as Medical Record Department [phone]. pt does not smoke, not use drugs. pt was provided with prescriptions for all of medications (please see medication reconciliation form) Pt was educated about safety plan in case of worsening of symptoms or in case of suicidal or homicidal ideation call 911 or go to the nearest ER, also was educated to take meds as prescribed and stay away from drugs, pt verbalized understanding. 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 Overall pt improved significantly, pt's affect became brighter, pt was less depressed, has realistic future oriented plans, pt also does not appear to be psychotic, or anxious, pt was socially appropriate, no behavioral issues, pts insight improved as well and soon pt deemed to be ready for discharge. At the time of the discharge pt denied been depressed, denied thoughts of harming self or others, denied psychotic symptoms, and pt does not appeared to be psychotic, denied been anxious, pt is not in imminent danger to self or others, will be following up at ., information about follow up appointment, time and address provided to the pt, it is patient responsibility to follow up with outpatient clinic, PMD as well as specialists (see note for more detailed information). In case pt will need to obtain results of studies pending at discharge pt was provided with contact information of Psychiatric Inpatient unit [phone] as well as Medical Record Department [phone]. Nicotine patch was offered Naltrexone treatment Counseling about smoking and alcohol cessation provided AA meetings as well as smoking cessation treatment program information was provided by the pt was provided with prescriptions for all of medications (please see medication reconciliation form) Pt was educated about safety plan in case of worsening of symptoms or in case of suicidal or homicidal ideation call 911 or go to the nearest ER, also was educated to take meds as prescribed and stay away from drugs, pt verbalized understanding. Prescriptions/Medication Reconciliation: Mirtazapine [Remeron] 7.5 mg PO HS #7 tab - Smoking Cessation Smoking Cessation Medication prescribed: No Reason for not providing: denied smoking - Antipsychotic Medications Pt discharged on 2 or more routine antipsychotic medications: No
== END 2018-05-27 16:43 | disposition home or self-care (01) | DRG 884 ==
LOC: ED 15:04 → ERH 20:49 → PSYC 21:57
PROVIDERS: ADMIT Psychiatry & Neurology Psychiatry; ATTEND Psychiatry & Neurology Psychiatry
DX: F06.30 Mood disorder due to known physiological condition, unspecified (principal); F32.9 Major depressive disorder, single episode, unspecified; K29.70 Gastritis, unspecified, without bleeding; K21.9 Gastro-esophageal reflux disease without esophagitis; G47.00 Insomnia, unspecified